=== PATIENT | male | born 1950 | race Caucasian/White ===

== ENCOUNTER 2019-02-27 11:33 | Inpatient (IN) | payer MEDICARE, MEDICAID, OTHER | END 2019-03-02 15:48 | disposition home or self-care (01) | LOC: ER 11:33 → ED HOLD 15:30 → SUR 3N 17:34 | PROC: 0W9G3ZZ Drainage of Peritoneal Cavity, Percutaneous Approach (ICD-10-PCS; principal; ~2019-02-27) | DX: K70.31 Alcoholic cirrhosis of liver with ascites (principal); E87.1 Hypo-osmolality and hyponatremia; I85.00 Esophageal varices without bleeding; I50.30 Unspecified diastolic (congestive) heart failure; R60.1 Generalized edema ==

== ENCOUNTER 2019-04-13 20:28 | Inpatient (IN) | payer MEDICARE, MEDICAID | END 2019-04-18 15:15 | disposition home or self-care (01) | LOC: ER 20:28 → SUR 3N 04-14 02:32 | DX: K70.31 Alcoholic cirrhosis of liver with ascites (principal); E87.1 Hypo-osmolality and hyponatremia; N18.9 Chronic kidney disease, unspecified; E87.6 Hypokalemia ==

== ENCOUNTER 2019-04-23 13:43 | Emergency (ER) | payer MEDICARE, MEDICAID ==
[~2019-04-23] VITALS: Ht 170.2 cm; Wt 86.0 kg
[~2019-04-23 13:43] MED LIST: FAMO20TA8 PO; FURO40TA4; LACT10SO67; MAGN400C PO; NICO-631 TD; POTA-82 PO; SPIR25TA5 PO
[2019-04-23] MEDS ORDERED: bupivacaine 0.25%/epinephrine 1:200,000 inj (contains preserv. MDV) IJ ONE (15:35)
[2019-04-23] MEDS ORDERED: epiNEPHrine inj 0.3 MG in LIDOcaine 1% 30ml vial 29.7 ML IJ ONE (15:50)
[2019-04-23] MEDS ORDERED: LIDOcaine 1% w/epiNEPHrine 1:200,000 30ml vial IJ ONE (15:50)
[2019-04-23 18:24] VITALS: BP 116/61
== END 2019-04-23 18:30 | disposition home or self-care (01) ==
LOC: ER 13:44
DX: K74.60 Unspecified cirrhosis of liver (principal); R06.02 Shortness of breath; Z79.899 Other long term (current) drug therapy
CPT/HCPCS: 99283; J3490